=== PATIENT | male | born 1985 | race Caucasian/White ===

== ENCOUNTER 2020-01-30 16:19 | Emergency (ER) | payer OTHER ==
[2020-01-30] MEDS ORDERED: Ketorolac 60 MG/2 ML SDV IM ONE (16:54)
--- NOTE | 2020-01-30 16:59 | EDM.PDOC ---
ED HPI GENERAL MEDICAL PROBLEM - General Chief Complaint: ENT Problem Stated Complaint: RT SIDE MOUTH TOOTH INFECTION Time Seen by Provider: 01/30/20 16:35 Source of Information: Reports: Patient History Limitations: Reports: No Limitations - History of Present Illness INITIAL COMMENTS - FREE TEXT/NARRATIVE: 34 yo male presents with right sided tooth pain. He has established care with dentist and scheduled root canal on February 06. He just finished 2 week course of clindamycin 2 days ago. He feels that the pain is worse after he eats. He has taken 2 doses of ibuprofen today with relief. afebrile. Tooth/Teeth Pain Score (Numeric/FACES): 7 - Related Data Allergies Allergy/AdvReac Type Severity Reaction Status Date / Time cefaclor [From Ceclor] Allergy Cannot Verified 01/30/20 16:30 Remember sulfamethoxazole Allergy Cannot Verified 01/30/20 16:30 [From Septra] Remember trimethoprim [From Septra] Allergy Cannot Verified 01/30/20 16:30 Remember Home Meds: Home Meds Fluticasone Propionate [Flonase] 1 spray NS DAILY 01/30/20 [History] Social & Family History - Tobacco Use Smoking Status *Q: Never Smoker - Caffeine Use Caffeine Use: Reports: None - Recreational Drug Use Recreational Drug Use: No ED ROS ENT - Review of Systems Review Of Systems: See Below Constitutional: Denies: Fever, Chills, Fatigue HEENT: Reports: Dental Pain, Sinus Problem. Denies: Rhinitis Respiratory: Denies: Shortness of Breath, Wheezing Cardiovascular: Denies: Chest Pain ED EXAM, ENT - Physical Exam Exam: See Below Exam Limited By: No Limitations General Appearance: Alert, WD/WN, No Apparent Distress Ears: Normal External Exam, Normal Canal, Hearing Grossly Normal, Normal TMs Nose: Normal Inspection, Normal Mucousa Mouth/Throat: Dental Pain (right upper mild edema no flucuance ). No: Pharyngeal Erythema, Throat Pain, Tonsillar Erythema Head: Atraumatic, Normocephalic Neck: Normal Inspection, Supple, Non-Tender, Full Range of Motion. No: Lymphadenopathy (R), Lymphadenopathy (L) Respiratory/Chest: Lungs Clear, Normal Breath Sounds. No: Crackles, Rhonchi, Wheezing Cardiovascular: Regular Rate, Rhythm, No Murmur Course - Vital Signs Last Recorded V/S: Last Vital Signs Temp 36.6 C 01/30/20 16:35 Pulse 103 H 01/30/20 16:35 Resp 18 01/30/20 16:35 BP 141/102 H 01/30/20 16:35 Pulse Ox 100 01/30/20 16:35 - Orders/Labs/Meds Orders: Active Orders 24 hr Category Date Time Status Ketorolac [Toradol] Med 01/30/20 16:54 Once 60 mg IM ONETIME ONE Medication Orders Ketorolac Tromethamine (Toradol) 60 mg IM ONETIME ONE Stop: 01/30/20 16:55 Meds: Medications Generic Name Dose Route Start Last Admin Trade Name Jada PRN Reason Stop Dose Admin Ketorolac Tromethamine 60 mg 01/30/20 16:54 Toradol IM 01/30/20 16:55 ONETIME ONE Departure - Departure Time of Disposition: 17:00 Disposition: Home, Self-Care 01 Condition: Good Clinical Impression: Pain, dental - Discharge Information *PRESCRIPTION DRUG MONITORING PROGRAM REVIEWED*: Not Applicable *COPY OF PRESCRIPTION DRUG MONITORING REPORT IN PATIENT ЕЛЕНА: Not Applicable Referrals: Jose Alejandro Santiago DO [Primary Care Provider] - Additional Instructions: follow-up with your dentist as scheduled Ibuprofen 600 mg twice daily scheduled be sure to take with food may use additional dose of Ibuprofen 400 mg if needed Sepsis Event Note (ED) - Evaluation Sepsis Screening Result: No Definite Risk - Focused Exam Vital Signs: Vital Signs Temp Pulse Resp BP Pulse Ox 01/30/20 16:35 36.6 C 103 H 18 141/102 H 100 - My Orders Last 24 Hours: My Active Orders 01/30/20 16:54 Ketorolac [Toradol] 60 mg IM ONETIME ONE - Assessment/Plan Last 24 Hours: My Active Orders 01/30/20 16:54 Ketorolac [Toradol] 60 mg IM ONETIME ONE
== END 2020-01-30 17:22 | disposition home or self-care (01) ==
LOC: JP.ED 16:19
DX: K08.89 Other specified disorders of teeth and supporting structures (principal); Z88.2 Allergy status to sulfonamides; Z88.1 Allergy status to other antibiotic agents
CPT/HCPCS: 96372; 99283; J1885